=== PATIENT | female | born 1955 | race Two or more races ===

== ENCOUNTER 2025-01-20 11:20 | Emergency (ER) | payer OTHER, MEDICAID ==
[~2025-01-20] VITALS: Ht 157.5 cm; Wt 55.6 kg
--- NOTE | 2025-01-20 13:44 | DVH ---
EXAM: CT HEAD WITHOUT CONTRAST HISTORY: Fall. R/o skull fracture, subarachnoid hemorrhage etc COMPARISON: None TECHNIQUE: Axial images of the head were obtained and reformatted in coronal and sagittal planes. All CT scans at this medical facility are performed using dose modulation techniques as appropriate t o a performed exam including the following: Automated exposure control was utilized; adjustment of th e MA and/or KV according to patient size; and use of iterative reconstruction technique. CT Dose: CTDI volume is 53 mGy. Dose-length product is 933 mGy*cm FINDINGS: There is no evidence of acute intracranial hemorrhage, mass, mass effect midline shift. There is no h ydrocephalus or extra-axial fluid collection. Mendez-white matter differentiation is maintained. The visualized paranasal sinuses and mastoid air cells are clear. The calvarium is intact without ev idence of fracture. IMPRESSION: 1. No acute intracranial process. HS:Y
--- NOTE | 2025-01-20 14:06 | ED.PDOC ---
HPI (NEURO) HPI Comments Year old with a pertinent MHx of elevated blood pressure and hypertension presents for a mechanical fall. Reports her dog ran into her from behind causing the patient to lose her balance and hit her head on cement. No LOC was advised by her PCP Chief Complaint: Head Injury Time Seen by MD: 12:15 Primary Care Provider: BROOKE Mode of Arrival: Ambulatory X-Ray, Labs, Meds, VS Vital Signs Date Time Temp Pulse Resp B/P (MAP) Pulse Ox O2 Delivery O2 Flow Rate FiO2 01/20/25 12:42 60 16 98 Room Air 01/20/25 11:30 96.7 60 16 185/89 (121) 98 96.7 179/88 (118) Departure 1 Departure Time of Disposition: 14:05 Impression: Primary Impression: Blunt head injury Qualified Codes: S09.8XXA - Other specified injuries of head, initial encounter Additional Impression: Elevated blood pressure reading Disposition: 01 HOME / SELF CARE / HOMELESS Condition: PHILLY Abreu BALLOON DIPPER Jan 20, 2025 14:06
[2025-01-20 14:12] VITALS: BP 165/82; PULSE 99; RESP 16; TEMP 98.7; O2SAT 100
== END 2025-01-20 14:06 | disposition home or self-care (01) ==
LOC: ER 11:20
DX: S09.90XA Unspecified injury of head, initial encounter (principal); I10 Essential (primary) hypertension; W18.00XA Striking against unspecified object with subsequent fall, initial encounter; Y93.89 Activity, other specified; Y92.89 Other specified places as the place of occurrence of the external cause; Y99.8 Other external cause status
CPT/HCPCS: 70450